=== PATIENT | female | born 1970 | race Caucasian/White ===

== ENCOUNTER 2017-07-11 09:43 | Emergency (ER) | payer BC, OTHER ==
[2017-07-11 09:59] VITALS: BP 110/70; BMI 39.8
--- NOTE | 2017-07-11 10:37 | DR.EXTPAIN ---
HPI - Time seen Time seen: 10:30 - PCP Primary Care Physician: JADA - HPI Comment HPI Comment: PATIENT SAID HER SHOULDER HAVE HURT FOR 8 DAYS. HER CHEST AND UPPER ABDOMINAL PAIN FOR FEW DAYS. HER CONDITION IS WORSE TODAY. THE RIGHT UPPER ABDOMEN PAIN IS FELT TO BE HER GB PENDING TESTING. NO DIARRHEA. - Complaint/Symptoms Chief Complaint Doctor Comments: CHEST PAIN, UPPER ABDOMEN PAIN AND RIGHT SHOULDER PAIN. Chief Complaint:: PAIN TO RIGHT SHOULDER AND DOWN ARM. THINKS IT IS HER GALLBLADDER HAS HAD INCREASED UPPER ABD PAIN. 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 negative: Chills, Fever Eyes: No Symptoms Reported. negative: Eye Pain, Discharge ENTM: No Symptoms Reported. negative: Ear Pain, Nose Discharge, Nose Congestion , Throat Pain Respiratoy: Short of Breath. negative: Productive Cough, Non-Productive Cough, Wheezing, Hemoptysis Cardiovascular: Chest Pain Gastrointestinal/Abdominal: Abdominal Pain, Nausea Genitourinary: No Symptoms Reported. negative: Dysuria, Frequency, Hematuria Neurological: No Symptoms Reported, Weakness. negative: Headache, Dizziness Musculoskeletal: Muscle Pain Integumentary: No Symptoms Reported Hematologic/Lymphatic: No Symptoms Reported Endocrine: No Symptoms Reported All Other Systems: Reviewed and Negative PE - Vital Signs Vitals: Temperature 97.9 F Pulse Rate 93 Respiratory Rate 16 Blood Pressure 110/70 O2 Sat by Pulse Oximetry 99 - General Limitations: No Limitations General Appearance: Alert - Head Head Exam: Normal Inspection - Eyes Eye exam: Normal Appearance - ENT ENT Exam: Normal External Ear Exam - Neck Neck Exam: Normal Inspection - Chest Chest Inspection: Symmetric Chest Wall Rise - Respiratory Respiratory Exam: Normal Lung Sounds Bilat Respiratory Exam: Bilateral Rhonchi, Lower Rhonchi - Cardiovascular Cardiovascular Exam: Regular Rate, Normal Rhythm - Abdominal Exam Abdominal Exam: Normal Bowel Sounds, Soft, Tenderness Abdominal Tenderness: RUQ, LUQ, Epigastrium - Extremities Extremities Exam: Tenderness (TENDER RT SHOULDER. ROMDECREASE.) - Lower Extremities Neurovascular/Tendon Exam: Normal Capillary Refill Gait Exam: Observed and Normal - Back Back Exam: Normal Inspection - Neurological Neurological Exam: Alert, Oriented X3 - Psychiatric Psychiatric Exam: Anxious - Skin Skin Exam: Normal Color MDM - Differential Diagnosis Differential Diagnosis: Other (CHEST PAIN, ABDOMINAL PAIN, CHOLECYSTITIS, RIGHT SHOULDER PAIN) Course - Treatment Treatment: SEE ORDERS. - Education/Counseling Education/Counseling: Patient, Education Educated On: Diagnosis, Needs for Follow Up ROR - Labs Reviewed Laboratory Results Reviewed?: Yes Result Diagrams: 07/11/17 11:10 07/11/17 11:10 Laboratory: WBC 12.2 X10^3/uL (3.6-10.0) H 07/11/17 11:10 RBC 4.54 X10^6/uL (3.5-5.4) 07/11/17 11:10 Hgb 13.7 g/dL (12.0-16.0) 07/11/17 11:10 Hct 40.2 % (36.0-47.0) 07/11/17 11:10 MCV 88.4 fL (80.0-100.0) 07/11/17 11:10 MCH 30.2 pg (27.0-34.0) 07/11/17 11:10 MCHC 34.1 g/dL (33.0-35.0) 07/11/17 11:10 RDW 12.8 % (11.6-16.5) 07/11/17 11:10 Plt Count 336 X10^3/uL (150.0-450.0) 07/11/17 11:10 MPV 8.4 fL (7.4-11.0) 07/11/17 11:10 Neut % 76.6 % (42.0-75.0) H 07/11/17 11:10 Lymph % 15.5 % (21.0-51.0) L 07/11/17 11:10 Schley % 6.2 % (0.0-13.0) 07/11/17 11:10 Eos % 1.0 % (0.9-2.9) 07/11/17 11:10 Baso % 0.7 % (0.2-1.0) 07/11/17 11:10 Neut # 9.4 x10^3/uL (2.2-4.8) H 07/11/17 11:10 Lymph # 1.9 X10^3/uL (1.3-2.9) 07/11/17 11:10 Schley # 0.8 x10^3/uL (0.3-0.8) 07/11/17 11:10 Eos # 0.1 x10^3/uL (0.0-0.2) 07/11/17 11:10 Baso # 0.1 X10^3/uL (0.0-0.1) 07/11/17 11:10 Absolute Nucleated RBC 0.0 /100WBC 07/11/17 11:10 D-Dimer 419 ng/mL (0-400) H* 07/11/17 11:10 Sodium 136 mmol/L (136-145) 07/11/17 11:10 Corrected Sodium 137 mmol/L (136-145) 07/11/17 11:10 Potassium 4.1 mmol/L (3.5-5.1) 07/11/17 11:10 Chloride 100 mmol/L (98-107) 07/11/17 11:10 Carbon Dioxide 25.2 mmol/L (21-32) 07/11/17 11:10 BUN 21 mg/dL (7-18) H 07/11/17 11:10 Creatinine 1.30 mg/dL (0.55-1.02) H 07/11/17 11:10 Est GFR (MDRD) Af Amer 57 (>60) L 07/11/17 11:10 Est GFR (MDRD) Non-Af 47 (>60) L 07/11/17 11:10 Glucose 122 mg/dL (65-99) H 07/11/17 11:10 Calcium 9.5 mg/dL (8.5-10.1) 07/11/17 11:10 Corrected Calcium TNP 07/11/17 11:10 Total Bilirubin 0.30 mg/dL (0.2-1.0) 07/11/17 11:10 AST 22 Units/L (15-37) 07/11/17 11:10 ALT 23 Units/L (12-78) 07/11/17 11:10 Alkaline Phosphatase 113 Units/L (46-116) 07/11/17 11:10 Creatine Kinase 178 Units/L (26-192) 07/11/17 11:10 CK-MB (CK-2) < 1.0 ng/mL (0-4.0) 07/11/17 11:10 CK/CKMB % Calc 0.6 % (<4) 07/11/17 11:10 Troponin I < 0.02 ng/mL (0-1.5) 07/11/17 11:10 Total Protein 8.0 g/dL (6.4-8.2) 07/11/17 11:10 Albumin 3.7 g/dL (3.4-5.0) 07/11/17 11:10 Globulin 4.3 g/dL (2.5-4.5) 07/11/17 11:10 Albumin/Globulin Ratio 0.9 Ratio (1.1-2.1) L 07/11/17 11:10 Amylase 39 Units/L (25-115) 07/11/17 11:10 Lipase 224 Units/L (73-393) 07/11/17 11:10 H. pylori IgG Antibody Negative (NEGATIVE) 07/11/17 11:10 - XRAY XRAY Interpreted by: Radiologist XRAY Findings: REPORTS DISCUSS WITH PATIENT. - EKG Rhythm: NSR (EKG NOTED.) - Diagnosis Discharge Problem: Abdominal pain Qualifiers: Abdominal location: upper abdomen, unspecified Qualified Code(s): R10.10 - Upper abdominal pain, unspecified Chest pain Qualifiers: Chest pain type: unspecified Qualified Code(s): R07.9 - Chest pain, unspecified Right shoulder pain Qualifiers: Chronicity: acute Qualified Code(s): M25.511 - Pain in right shoulder - Discharge Plan Disposition: HOME, SELF-CARE Condition: Stable Prescriptions: Ketorolac Tromethamine [Toradol Tab] 10 mg PO Q8H PRN #15 tab PRN Reason: Pain - Follow ups/Referrals Follow ups/Referrals: JIHAN GARAY [Primary Care Provider] - 1 day - Instructions Instructions: Abdominal Pain, Adult, [id number], Musculoskeletal Pain, Chest Pain Observation Additional Instructions: RETURN TO ED IF WORSE. THE MUSCULOSKELETAL PAIN IS FELT TO BE IN RIGHT SHOULDER.
[2017-07-11 11:18] LABS: BASOPHILS # (AUTO) 0.1 X10^3/uL (0.0-0.1); BASOPHILS % (AUTO) 0.7 % (0.2-1.0); EOSINOPHILS # (AUTO) 0.1 x10^3/uL (0.0-0.2); HEMATOCRIT 40.2 % (36.0-47.0); HEMOGLOBIN 13.7 g/dL (12.0-16.0); LYMPHOCYTES # (AUTO) 1.9 X10^3/uL (1.3-2.9); LYMPHOCYTES % (AUTO) 15.5 % (21.0-51.0); MEAN CORPUSCULAR HEMOGLOBIN 30.2 pg (27.0-34.0); MEAN CORPUSCULAR HGB CONC 34.1 g/dL (33.0-35.0); MEAN CORPUSCULAR VOLUME 88.4 fL (80.0-100.0); MEAN PLATELET VOLUME 8.4 fL (7.4-11.0); MONOCYTES # (AUTO) 0.8 x10^3/uL (0.3-0.8); MONOCYTES % (AUTO) 6.2 % (0.0-13.0); NEUTROPHILS # (AUTO) 9.4 x10^3/uL (2.2-4.8); NEUTROPHILS % (AUTO) 76.6 % (42.0-75.0); PLATELET COUNT 336 X10^3/uL (150.0-450.0); RED BLOOD COUNT 4.54 X10^6/uL (3.5-5.4); RED CELL DISTRIBUTION WIDTH 12.8 % (11.6-16.5); WHITE BLOOD COUNT 12.2 X10^3/uL (3.6-10.0)
[2017-07-11 11:35] LABS: BLOOD UREA NITROGEN 21 mg/dL (7-18); CALCIUM 9.5 mg/dL (8.5-10.1); CARBON DIOXIDE 25.2 mmol/L (21-32); CHLORIDE 100 mmol/L (98-107); COR NA(FOR HYPERGLY) 137 mmol/L (136-145); SODIUM 136 mmol/L (136-145); TROPONIN I < 0.02 ng/mL (0-1.5); eGFR BLACK RACES 57 (>60); eGFR NON BLACK RACES 47 (>60)
[2017-07-11 11:39] LABS: ALANINE AMINOTRANSFERASE 23 Units/L (12-78); ALBUMIN 3.7 g/dL (3.4-5.0); ALKALINE PHOSPHATASE 113 Units/L (46-116); AMYLASE 39 Units/L (25-115); ASPARTATE AMINO TRANSFERASE 22 Units/L (15-37); CKMB % 0.6 % (<4); CREATINE KINASE 178 Units/L (26-192); CREATINE KINASE MB < 1.0 ng/mL (0-4.0); LIPASE 224 Units/L (73-393)
--- NOTE | 2017-07-11 11:45 | RAD ---
HISTORY: Chest pain and a right-sided shoulder pain. Study: Portable chest. Comparison: Chest x-ray dated December 05, 2012. Findings: The trachea is midline. The cardiac silhouette is unremarkable. No obvious focal consolidation, ple ural effusion, or pneumothorax. The bony thorax is unremarkable. IMPRESSION: No acute cardiopulmonary disease. Reported By:
[2017-07-11] MEDS ORDERED: ZOFRAN INJ 4 MG VIAL IVP ONE (12:24)
[2017-07-11] MEDS ORDERED: DEMEROL INJ IVP ONE (12:24)
--- NOTE | 2017-07-11 12:41 | US ---
HISTORY: Abdominal pain Study: Right upper quadrant abdominal ultrasound Comparison: None Technique: Multiple images of the right upper quadrant were obtained. Findings: The liver measures 16.1 cm but is incompletely visualized. No sonographic evidence of focal discrete hepatic mass is appreciated. The right kidney measures 9.9 x 6.4 x 5.6. No sonographic evidence of hy dronephrosis is identified. No shadowing echogenic stones are noted within the gallbladder. Gallbladd er wall thickness is within normal limits measuring 2.6 mm. The common bile duct is within normal hawley its in caliber measuring 3.3 mm. The pancreas was incompletely visualized. IMPRESSION: 1. Unremarkable examination of the right upper quadrant. Reported By:
[2017-07-11] MEDS ORDERED: ZOFRAN INJ 4 MG VIAL ONE (12:42)
[2017-07-11] MEDS ORDERED: DEMEROL INJ ONE (12:43)
[2017-07-11] MEDS ORDERED: NS 100 ML IV 100 ML IV ONE (13:13)
--- NOTE | 2017-07-11 13:51 | CT ---
CTA chest Indication: Chest pain, elevated D-dimer Technique: Helical CT images of the chest were obtained with IV contrast. Reformatted images in the c oronal and sagittal planes and 3D MIP images were also generated for review. Comparison: None Findings: Opacification of the pulmonary arteries is adequate for detection of PTE. No pulmonary thro mboembolus is identified. There is no pulmonary arterial dilatation or evidence of right heart strain . The heart size is normal without pericardial effusion. The aorta and great vessels are normal in co ntour and caliber. There is heterogeneous opacification of the left brachiocephalic vein and SVC, lik mamta related to contrast admixing. The central airways are patent. There is no lymphadenopathy. The iveth ngs are clear without focal consolidation or incidental nodule/mass. No pleural effusion or pneumotho rax is identified. Limited arterial phase images of the upper abdomen are unremarkable. There is a chronic appearing ant erior compression fracture of the L1 vertebral body. No acute or aggressive osseous abnormality is id entified. Impression: No PTE or acute chest process. Incidental findings, as above. Reported By:
== END 2017-07-11 14:30 | disposition home or self-care (01) ==
LOC: ER 10:17
DX: R07.89 Other chest pain (principal); R10.11 Right upper quadrant pain; M25.511 Pain in right shoulder
CPT/HCPCS: 36415; 71010; 71275; 76705; 80053; 82150; 82550; 82553; 83690; 84484; 85025; 85378; 86677; 93005; 93010; 96365; 96374; 96375; 99283; A4222; J2175; J2405

== ENCOUNTER → 2017-07-25 | Outpatient (CLI) | payer BC ==
[2017-07-11 09:59] VITALS: BP 110/70
[2017-07-25 10:28] LABS: ALANINE AMINOTRANSFERASE 21 Units/L (12-78); ALBUMIN 3.5 g/dL (3.4-5.0); ALKALINE PHOSPHATASE 101 Units/L (46-116); AMYLASE 41 Units/L (25-115); ASPARTATE AMINO TRANSFERASE 19 Units/L (15-37); BLOOD UREA NITROGEN 19 mg/dL (7-18); CALCIUM 9.3 mg/dL (8.5-10.1); CHLORIDE 103 mmol/L (98-107); LIPASE 142 Units/L (73-393); SODIUM 139 mmol/L (136-145); TOTAL PROTEIN 7.6 g/dL (6.4-8.2); eGFR BLACK RACES > 60 (>60); eGFR NON BLACK RACES > 60 (>60)
[2017-07-25 10:50] LABS: BASOPHILS # (AUTO) 0.1 X10^3/uL (0.0-0.1); BASOPHILS % (AUTO) 0.6 % (0.2-1.0); EOSINOPHILS # (AUTO) 0.2 x10^3/uL (0.0-0.2); EOSINOPHILS % (AUTO) 1.8 % (0.9-2.9); HEMATOCRIT 38.2 % (36.0-47.0); LYMPHOCYTES # (AUTO) 1.5 X10^3/uL (1.3-2.9); LYMPHOCYTES % (AUTO) 17.4 % (21.0-51.0); MEAN CORPUSCULAR HEMOGLOBIN 30.3 pg (27.0-34.0); MEAN CORPUSCULAR HGB CONC 33.9 g/dL (33.0-35.0); MEAN CORPUSCULAR VOLUME 89.4 fL (80.0-100.0); MEAN PLATELET VOLUME 8.4 fL (7.4-11.0); MONOCYTES # (AUTO) 0.6 x10^3/uL (0.3-0.8); MONOCYTES % (AUTO) 6.7 % (0.0-13.0); NEUTROPHILS # (AUTO) 6.5 x10^3/uL (2.2-4.8); NEUTROPHILS % (AUTO) 73.5 % (42.0-75.0); PLATELET COUNT 280 X10^3/uL (150.0-450.0); RED BLOOD COUNT 4.28 X10^6/uL (3.5-5.4); RED CELL DISTRIBUTION WIDTH 13.3 % (11.6-16.5); WHITE BLOOD COUNT 8.9 X10^3/uL (3.6-10.0)
== END ==
LOC: LAB 09:43
PROVIDERS: ATTEND Psychiatry & Neurology Neurology
DX: K81.0 Acute cholecystitis (principal)
CPT/HCPCS: 36415; 80053; 82150; 83690; 85025

== ENCOUNTER → 2017-08-04 | Outpatient (CLI) | payer BC ==
[2017-07-11 09:59] VITALS: BP 110/70
--- NOTE | 2017-08-04 13:38 | NM ---
HISTORY: Lower abdominal pain, nausea Study: Nuclear medicine HIDA scan with ejection fraction Comparison: Gallbladder ultrasound 07/11/2017 Technique: Multiple scintigraphic images of the abdomen were obtained the intravenous administration of 5.5 mCi of technetium labeled Choletec. Following distention of the gallbladder with radiotracer, the patient drank 8 oz of Ensure Plus. An estimated gallbladder ejection fraction was calculated based on the physiologic response of this matthew stion. Findings: Homogeneous uptake of radiotracer is seen throughout the liver. This intrabiliary ductal system is o bserved normally. The common hepatic and common bile duct grossly appear unremarkable with normal bi liary-bowel transit. The gallbladder is observed to fill normally. After the ingestion of Ensure, a normal gallbladder ejection fraction of 69% (normal > 35%) is observ ed. IMPRESSION: 1. Normal hepatobiliary imaging scan. 2. Normal gallbladder ejection fraction. Reported By:
== END ==
LOC: RAD 09:32
PROVIDERS: ATTEND Internal Medicine Gastroenterology
DX: R10.31 Right lower quadrant pain (principal); R10.32 Left lower quadrant pain; R10.13 Epigastric pain; R11.0 Nausea
CPT/HCPCS: 78227; A9537

== ENCOUNTER → 2017-08-17 | Outpatient (CLI) | payer BC ==
--- NOTE | 2017-08-17 16:07 | MRI ---
MRI right shoulder without contrast Indication: Shoulder pain Comparison: None Technique: Multiplanar, multi sequence MR images of the right shoulder were obtained without contrast . Findings: No evidence for acute fracture or dislocation. There are mild degenerative changes of the A C joint. Type 2 acromion. No marked encroachment on the rotator cuff. There is focal linear intermedi ate signal defect along the undersurface fibers of the distal conjoined tendon (for example coronal i mages 12), without tendon retraction. The remainder of the cuff is otherwise grossly intact. The intr a-articular biceps tendon is intact. No overt labral tear. The glenohumeral articular surfaces are gr ossly maintained. No joint effusion. No significant muscle atrophy about the shoulder. Impression: Suggestion of rim rent tear of the distal conjoined tendon, of indeterminate chronicity. No evidence for large cuff tear or tendon retraction. Mild AC joint DJD. Reported By:
--- NOTE | 2017-08-18 11:26 | MRI ---
MRI SPINE THORACIC WITHOUT CONTRAST CLINICAL HISTORY: 47-year-old female with back and right shoulder pain. COMPARISON: None. TECHNIQUE: Multiplanar, multisequence MRI images of the thoracic spine were obtained prior to and fo llowing the uneventful intravenous administration of contrast. FINDINGS: Straightening of the thoracic kyphosis as imaged. Alignment is maintained. Vertebral body and interve rtebral disc space height are normal. Vertebral marrow and intervertebral disc signal are normal. C6-C7: Broad-based disc osteophyte nearly completely effaces the ventral subarachnoid spaces with fla ttening of the ventral cord without signal change. Central canal is narrowed to 8 mm. Large Schmorl's node superior endplate L1. 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 Cord signal is otherwise unremarkable. There is no evidence of significant neural foraminal stenosis or canal compromise. IMPRESSION: 1. 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 Recommend MR brain and cervical spine with contrast, as well as MR thoracic and lumbar spine with contrast for complete evaluation and exclusion of neoplastic process. 2. Degenerative changes of the lower cervical spine as described above. This may be a source of syrin gohydromyelia. Reported By:
--- NOTE | 2017-08-18 11:33 | MRI ---
MRI SPINE LUMBAR WITHOUT CONTRAST CLINICAL HISTORY: 47-year-old female with back pain. COMPARISON: None. Technique: Multiplanar, multisequence MRI images of the lumbar spine were obtained without the admin istration of contrast. FINDINGS: The most caudad, fully-formed intervertebral disc will be labeled L5-S1 for the purpose of this dictation. There is normal lumbar lordosis. Alignment is maintained. Large Schmorl's node superi or endplate L1 with remaining vertebral body heights preserved disc heights are preserved. Marrow sig nal is preserved with mild loss of disc signal L3-L5. Cord signal is normal. The conus medullaris is normal in signal characteristics and morphology and terminates at the L1-2 level. T11-T12: Mild symmetric disc bulge and facet hypertrophy with thickening of the ligamentum flavum wit hout central canal or neural foraminal stenosis. T12-L1: Small symmetric disc bulge with mild thickening of the ligamentum flavum and facet hypertroph y without central canal or neural foraminal stenosis. L1-L2: Small symmetric disc bulge with moderate facet hypertrophy and thickening of ligamentum flavum . No central canal or neural foraminal stenosis. L2-L3: Moderate symmetric disc bulge and facet hypertrophy with thickened flavum. No central canal or neural foraminal stenosis. L3-L4: Large symmetric disc bulge with severe facet hypertrophy and thickened flavum. Trace fluid in the facet joints. No central canal or neural foraminal stenosis. L4-L5: Large asymmetric disc bulge with a right foraminal component with severe facet hypertrophy and thickened ligamentum flavum. No significant central canal or neural foraminal stenosis. L5-S1: Symmetric disc bulge with severe facet hypertrophy and thickened flavum without central canal or neural foraminal stenosis. Paraspinous soft tissues are unremarkable. IMPRESSION: 1. Mild multilevel disc degeneration and spondyloarthropathy without significant central canal or jamilah ral foraminal stenosis. 2. See level by level descriptions above. Reported By:
== END ==
LOC: RAD 08:37
PROVIDERS: ATTEND Psychiatry & Neurology Neurology
DX: M51.24 Other intervertebral disc displacement, thoracic region (principal); M54.2 Cervicalgia; M25.511 Pain in right shoulder; M19.011 Primary osteoarthritis, right shoulder; M51.36 Other intervertebral disc degeneration, lumbar region
CPT/HCPCS: 72146; 72148; 73221

== ENCOUNTER 2017-09-11 17:28 | Inpatient (IN) | payer BC ==
--- NOTE | 2017-09-11 18:00 | DR.GENAD ---
HPI - Complaint/Symptoms Chief Complaint Doctors Comments: AMS, POSSIBLE DRUG OVER DOSE. 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 - Family History Family Medical History: Diabetes Mellitus, [place], Coronary Artery Disease, Heart Failure, Hypertension - Social History Do you use any recreational Drugs:: No PE - Vital Signs Vitals: Temperature 97.0 F Pulse Rate [Right Brachial] 92 Pulse Rate 95 Respiratory Rate 17 Blood Pressure [Left Arm] 118/60 Blood Pressure 120/59 O2 Sat by Pulse Oximetry 98 - General Limitations: Altered Mental Status General Appearance: Obtunded - Head Head Exam: Normal Inspection - Eyes Eye exam: Normal Appearance - ENT ENT Exam: Normal External Ear Exam External Ear Exam: Normal External Inspection TM/Canal Exam: Bilateral Normal Nose Exam: Normal Nose Exam Mouth Exam: Normal Inspection Throat Exam: Normal Inspection - Neck Neck Exam: Trachea Midline - Chest Chest Inspection: Symmetric Chest Wall Rise - Respiratory Respiratory Exam: Respiratory Distress Respiratory Exam: Bilateral Wheezing, Bilateral Rhonchi, Upper Rhonchi, Lower Wheezing, Lower Rhonchi - Cardiovascular Cardiovascular Exam: Regular Rate, Normal Rhythm, Normal Heart Sounds - Abdominal Exam Abdominal Exam: Normal Bowel Sounds, Soft. negative: Tenderness - Extremities Extremities Exam: Normal Inspection - Back Back Exam: Normal Inspection MDM - Additional Information Additional Information Obtained From: Old Records (DRUG OVERDOSE, ASPIRATION, AMS) Course - Treatment Treatment: SEE ORDERS. - Education/Counseling Educated On: Diagnosis - Discharge Plan Condition: Stable - Follow ups/Referrals Follow ups/Referrals: MAYE RAMIREZ [Primary Care Provider] - 3 days - Instructions
[2017-09-11] MEDS ORDERED: NS 1000 ML 1,000 ML IV ONE ×3 (18:16→22:24)
--- NOTE | 2017-09-11 19:01 | RAD ---
Examination: Portable AP chest History: Possible overdose, question ish aspiration Comparison reference 07/11/2017 Findings: Continued normal heart size with clear lungs and pleural spaces. No definite pneumonia, ate lectasis or pleural abnormality. Impression: No change; no acute disease. Reported By:
--- NOTE | 2017-09-11 19:03 | CT ---
STUDY: CT HEAD WITHOUT CONTRAST HISTORY: Possible medication overdose. TECHNIQUE: Multiple axial images of the head were obtained from the skull base to the vertex without administration of IV contrast. Automated exposure control (AEC) was utilized to adjust the MA and/o r kV. COMPARISON: None. FINDINGS: The sulci, cisterns and ventricles are age appropriate. There is no evidence of acute terr itorial infarction, hemorrhage, mass, mass effect, or midline shift. There are no abnormal intra-axia l or extra-axial fluid collections. There is no evidence of acute osseous abnormality or significant soft tissue swelling. Visualized par anasal sinuses and mastoid air cells are predominately clear. IMPRESSION: 1. No evidence of acute intracranial abnormality. Reported By:
[2017-09-11 19:09] LABS: BASOPHILS % (AUTO) 0.2 % (0.2-1.0); EOSINOPHILS % (AUTO) 0.1 % (0.9-2.9); HEMATOCRIT 37.5 % (36.0-47.0); HEMOGLOBIN 12.4 g/dL (12.0-16.0); LYMPHOCYTES # (AUTO) 0.4 X10^3/uL (1.3-2.9); LYMPHOCYTES % (AUTO) 2.3 % (21.0-51.0); MEAN CORPUSCULAR HEMOGLOBIN 30.2 pg (27.0-34.0); MEAN CORPUSCULAR VOLUME 91.5 fL (80.0-100.0); MEAN PLATELET VOLUME 8.4 fL (7.4-11.0); MONOCYTES # (AUTO) 0.9 x10^3/uL (0.3-0.8); MONOCYTES % (AUTO) 5.8 % (0.0-13.0); NEUTROPHILS # (AUTO) 14.5 x10^3/uL (2.2-4.8); NEUTROPHILS % (AUTO) 91.6 % (42.0-75.0); PLATELET COUNT 266 X10^3/uL (150.0-450.0); RED CELL DISTRIBUTION WIDTH 13.3 % (11.6-16.5); WHITE BLOOD COUNT 15.8 X10^3/uL (3.6-10.0)
[2017-09-11 19:22] LABS: PLATELET MORPHOLOGY COMMENT NORMAL (NORMAL)
[2017-09-11 19:23] LABS: LACTIC ACID 0.8 mmol/L (0.4-2.0)
[2017-09-11 19:46] LABS: ALANINE AMINOTRANSFERASE 82 Units/L (12-78); ALBUMIN 3.1 g/dL (3.4-5.0); ALKALINE PHOSPHATASE 120 Units/L (46-116); ASPARTATE AMINO TRANSFERASE 198 Units/L (15-37); BLOOD UREA NITROGEN 63 mg/dL (7-18); CALCIUM 8.1 mg/dL (8.5-10.1); CARBON DIOXIDE 20.6 mmol/L (21-32); CHLORIDE 94 mmol/L (98-107); COR CA(FOR HYPOALB) 8.8 mg/dL (8.5-10.1); CREATININE 5.95 mg/dL (0.55-1.02); SODIUM 129 mmol/L (136-145); TOTAL PROTEIN 7.4 g/dL (6.4-8.2); TROPONIN I < 0.02 ng/mL (0-1.5); eGFR BLACK RACES 10 (>60); eGFR NON BLACK RACES 8 (>60)
[2017-09-11 19:47] LABS: CREATINE KINASE MB 215.6 ng/mL (0-4.0)
[2017-09-11 19:50] LABS: CKMB % 3.6 % (<4); CREATINE KINASE 6070 Units/L (26-192)
[2017-09-11 19:58] LABS: BILIRUBIN,URINE NEGATIVE (NEGATIVE); BLOOD/HEMOGLOBIN,URINE 5+ (NEGATIVE); GLUCOSE, URINE NEGATIVE (NEGATIVE); KETONES,URINE NEGATIVE (NEGATIVE); LEUKOCYTE ESTERASE ,URINE 3+ (NEGATIVE); NITRITES,URINE POSITIVE (NEGATIVE); PROTEIN,URINE 3+ (NEGATIVE); UROBILINOGEN,URINE NORMAL (NORMAL)
[2017-09-11 20:04] LABS: APPEARANCE,URINE HAZY (CLEAR); BACTERIA,URINE 3+ /HPF (NEGATIVE); COLOR,URINE DARK YELLOW (YELLOW); SQUAMOUS EPITHELIAL CELL,UR RARE /HPF (NEGATIVE)
[2017-09-11] MEDS ORDERED: D50W ABBOJECT SYR ONE (20:25)
[2017-09-11] MEDS ORDERED: HumuLIN R ONE (20:26)
[2017-09-11] MEDS ORDERED: D50W ABBOJECT SYR IV ONE (20:34)
[2017-09-11] MEDS ORDERED: HumuLIN R IV ONE (20:35)
[2017-09-11] MEDS ORDERED: NS 1000 ML 1,000 ML ONE ×2 (21:21→22:15)
[2017-09-11 21:30] LABS: BILIRUBIN,URINE 1+ (NEGATIVE); BLOOD/HEMOGLOBIN,URINE 5+ (NEGATIVE); GLUCOSE, URINE NEGATIVE (NEGATIVE); KETONES,URINE NEGATIVE (NEGATIVE); LEUKOCYTE ESTERASE ,URINE 3+ (NEGATIVE); NITRITES,URINE POSITIVE (NEGATIVE); PROTEIN,URINE 3+ (NEGATIVE); UROBILINOGEN,URINE NORMAL (NORMAL)
[2017-09-11 21:36] LABS: APPEARANCE,URINE CLOUDY (CLEAR); BACTERIA,URINE 3+ /HPF (NEGATIVE); COLOR,URINE YELLOW (YELLOW); RBC,URINE 0-5 /HPF (NEGATIVE); SQUAMOUS EPITHELIAL CELL,UR RARE /HPF (NEGATIVE)
[2017-09-11] MEDS ORDERED: DOPAMINE IV PREMIX 400 MG/250 ML 400 MG/250 ML BAG IV PRN (21:50)
[2017-09-11] MEDS ORDERED: LEVOPHED INJ ONE (21:57)
[2017-09-11] MEDS ORDERED: D5W 250 ML IV 250 ML IV ONE (21:58)
[2017-09-11] MEDS ORDERED: LEVOPHED INJ 8 MG in D5W 250 ML IV 242 ML IV PRN (21:58)
[2017-09-11] MEDS: LEVOPHED INJ 8 MG in D5W 250 ML IV 242 ML IV PRN (22:22)
[2017-09-11] MEDS ORDERED: ROCEPHIN 1 GM IV PREMIX 1 GM/50 ML IV.SOLN. IV ONE ×2 (22:27→22:36)
[2017-09-11] MEDS ORDERED: NS 1000 ML 1,000 ML IV SCH (23:45)
[2017-09-12] MEDS ORDERED: NS 1000 ML 1,000 ML IV ONE (00:20)
[2017-09-12 03:10] LABS: TROPONIN I < 0.02 ng/mL (0-1.5)
[2017-09-12 03:12] LABS: CKMB % 3.2 % (<4); CREATINE KINASE 5212 Units/L (26-192); CREATINE KINASE MB 165.3 ng/mL (0-4.0)
[2017-09-12 03:24] LABS: ABG BASE EXCESS -13.3 mmol/L (-2.0-2.0); ABG HCO3 19.6 mmol/L (22-26)
[2017-09-12] MEDS ORDERED: NARCAN INJ IVP ONE (03:58)
[2017-09-12] MEDS: NS 1000 ML 1,000 ML IV SCH ×4 (04:26→20:54)
[2017-09-12 04:42] LABS: ABG BASE EXCESS -13.2 mmol/L (-2.0-2.0)
[2017-09-12 04:44] LABS: ABG HCO3 16.2 mmol/L (22-26)
[2017-09-12 05:38] LABS: ABG BASE EXCESS -12.7 mmol/L (-2.0-2.0)
[2017-09-12 05:40] LABS: ABG HCO3 16.8 mmol/L (22-26)
[2017-09-12 07:46] LABS: BASOPHILS # (AUTO) 0.1 X10^3/uL (0.0-0.1); BASOPHILS % (AUTO) 0.3 % (0.2-1.0); EOSINOPHILS % (AUTO) 0.1 % (0.9-2.9); HEMATOCRIT 36.7 % (36.0-47.0); HEMOGLOBIN 12.1 g/dL (12.0-16.0); LYMPHOCYTES # (AUTO) 0.4 X10^3/uL (1.3-2.9); LYMPHOCYTES % (AUTO) 2.3 % (21.0-51.0); MEAN CORPUSCULAR HEMOGLOBIN 30.6 pg (27.0-34.0); MEAN CORPUSCULAR HGB CONC 32.9 g/dL (33.0-35.0); MEAN CORPUSCULAR VOLUME 93.2 fL (80.0-100.0); MEAN PLATELET VOLUME 8.7 fL (7.4-11.0); MONOCYTES # (AUTO) 1.2 x10^3/uL (0.3-0.8); MONOCYTES % (AUTO) 6.4 % (0.0-13.0); NEUTROPHILS # (AUTO) 17.5 x10^3/uL (2.2-4.8); NEUTROPHILS % (AUTO) 90.9 % (42.0-75.0); PLATELET COUNT 264 X10^3/uL (150.0-450.0); RED BLOOD COUNT 3.94 X10^6/uL (3.5-5.4); RED CELL DISTRIBUTION WIDTH 13.4 % (11.6-16.5); WHITE BLOOD COUNT 19.2 X10^3/uL (3.6-10.0)
[2017-09-12 08:02] LABS: ALANINE AMINOTRANSFERASE 172 Units/L (12-78); ALBUMIN 2.8 g/dL (3.4-5.0); ALKALINE PHOSPHATASE 143 Units/L (46-116); ASPARTATE AMINO TRANSFERASE 282 Units/L (15-37); BAND NEUTROPHILS % 5 % (0-10); BLOOD UREA NITROGEN 66 mg/dL (7-18); CALCIUM 7.5 mg/dL (8.5-10.1); CARBON DIOXIDE 16.8 mmol/L (21-32); CHLORIDE 98 mmol/L (98-107); COR CA(FOR HYPOALB) 8.5 mg/dL (8.5-10.1); CREATININE 5.82 mg/dL (0.55-1.02); MAGNESIUM 2.3 mg/dL (1.7-2.9); PLATELET MORPHOLOGY COMMENT NORMAL (NORMAL); SODIUM 133 mmol/L (136-145); TOTAL PROTEIN 6.9 g/dL (6.4-8.2); eGFR BLACK RACES 10 (>60); eGFR NON BLACK RACES 8 (>60)
[2017-09-12 08:11] LABS: TROPONIN I 0.07 ng/mL (0-1.5)
[2017-09-12 08:16] LABS: ABG HCO3 18.3 mmol/L (22-26)
[2017-09-12 08:19] LABS: ABG ALLEN TEST POS
[2017-09-12] MEDS ORDERED: ROCEPHIN 1 GM IV PREMIX 1 GM/50 ML IV.SOLN. IV SCH (09:00)
[2017-09-12 09:42] LABS: CKMB % 2.7 % (<4); CREATINE KINASE MB 134.3 ng/mL (0-4.0)
[2017-09-12] MEDS ORDERED: NARCAN INJ ONE (09:46)
[2017-09-12] MEDS ORDERED: ROMAZICON INJ 0.5 MG ONE (09:46)
[2017-09-12] MEDS ORDERED: NARCAN INJ IVP PRN (09:48)
[2017-09-12] MEDS ORDERED: KAYEXALATE PO ONE ×2 (09:49→09:58)
[2017-09-12] MEDS ORDERED: NARCAN INJ 2 MG in NS 500 ML IV 500 ML IV ONE (10:00)
[2017-09-12] MEDS ORDERED: D50W ABBOJECT SYR IV ONE (10:05)
[2017-09-12] MEDS ORDERED: HumuLIN R SUBCUT ONE (10:07)
[2017-09-12] MEDS ORDERED: HumuLIN R ONE (10:09)
[2017-09-12] MEDS ORDERED: HumuLIN R IV ONE (10:12)
[2017-09-12] MEDS ORDERED: TOBRAMYCIN SULFATE 80 MG in NS 100 ML IV 100 ML IV ONE (10:15)
[2017-09-12] MEDS ORDERED: NS 100 ML IV 100 ML IV ONE (10:26)
[2017-09-12] MEDS ORDERED: TOBRAMYCIN SULFATE ONE (10:26)
--- NOTE | 2017-09-12 10:52 | RAD ---
Examination: Portable AP chest History: NG tube placement Findings: A NG tube passes below the diaphragm into the stomach. There is marked gaseous dilatation o f the stomach. The tip of the NG tube is not identified on the image. Impression: NG tube position as noted, the tip not identified on this examination. There is marked ga seous distention of the stomach. Reported By:
[2017-09-12] MEDS ORDERED: MAXIPIME VIAL 1 GM IV SCH (11:00)
[2017-09-12 11:06] LABS: ABG BASE EXCESS -13.7 mmol/L (-2.0-2.0)
[2017-09-12 11:09] LABS: ABG ALLEN TEST POS; ABG HCO3 16.1 mmol/L (22-26)
[2017-09-12] MEDS: LEVAQUIN PREMIX IV 250 MG 250 MG/50 ML BAG IV SCH (11:40)
[2017-09-12 12:02] LABS: CREATININE 4.76 mg/dL (0.55-1.02)
[2017-09-12] MEDS: MAXIPIME 1 GM IV PREMIX 1 GM/50 ML BAG IV SCH (12:10)
[2017-09-12] MEDS: LEVOPHED INJ 8 MG in D5W 250 ML IV 242 ML IV PRN (14:09)
[2017-09-12] MEDS ORDERED: NARCAN INJ 2 MG in NS 500 ML IV 500 ML IV PRN (15:54)
[2017-09-12 15:56] LABS: ABG BASE EXCESS -8.8 mmol/L (-2.0-2.0); ABG HCO3 20.3 mmol/L (22-26)
[2017-09-12 15:59] LABS: ABG ALLEN TEST POS
[2017-09-12 16:28] LABS: CALCIUM 7.5 mg/dL (8.5-10.1); CARBON DIOXIDE 20.2 mmol/L (21-32); CREATININE 3.57 mg/dL (0.55-1.02)
[2017-09-12 16:37] LABS: ACETAMINOPHEN 0.6 ug/mL (10-30); SALICYLATE 5.3 mg/dL (2.8-20)
[2017-09-12 16:41] LABS: BLOOD ALCOHOL < 3 mg/dL (0-19.9)
[2017-09-12] MEDS ORDERED: SNACK - Diabetic Appropriate PO SCH ×2 (20:00)
[2017-09-13 05:06] LABS: BASOPHILS % (AUTO) 0.1 % (0.2-1.0); HEMATOCRIT 31.8 % (36.0-47.0); HEMOGLOBIN 10.5 g/dL (12.0-16.0); LYMPHOCYTES # (AUTO) 0.5 X10^3/uL (1.3-2.9); LYMPHOCYTES % (AUTO) 3.6 % (21.0-51.0); MEAN CORPUSCULAR HEMOGLOBIN 30.4 pg (27.0-34.0); MEAN PLATELET VOLUME 8.6 fL (7.4-11.0); MONOCYTES # (AUTO) 1.3 x10^3/uL (0.3-0.8); MONOCYTES % (AUTO) 9.1 % (0.0-13.0); NEUTROPHILS # (AUTO) 12.6 x10^3/uL (2.2-4.8); NEUTROPHILS % (AUTO) 87.2 % (42.0-75.0); PLATELET COUNT 260 X10^3/uL (150.0-450.0); RED BLOOD COUNT 3.46 X10^6/uL (3.5-5.4); RED CELL DISTRIBUTION WIDTH 13.8 % (11.6-16.5); WHITE BLOOD COUNT 14.5 X10^3/uL (3.6-10.0)
[2017-09-13 05:14] LABS: ALANINE AMINOTRANSFERASE 131 Units/L (12-78); ALBUMIN 2.5 g/dL (3.4-5.0); ALKALINE PHOSPHATASE 166 Units/L (46-116); ASPARTATE AMINO TRANSFERASE 164 Units/L (15-37); BLOOD UREA NITROGEN 44 mg/dL (7-18); CALCIUM 8.6 mg/dL (8.5-10.1); CARBON DIOXIDE 20.2 mmol/L (21-32); CHLORIDE 110 mmol/L (98-107); COR CA(FOR HYPOALB) 9.8 mg/dL (8.5-10.1); CREATININE 1.56 mg/dL (0.55-1.02); MAGNESIUM 1.9 mg/dL (1.7-2.9); SODIUM 142 mmol/L (136-145); TOTAL PROTEIN 6.4 g/dL (6.4-8.2); eGFR BLACK RACES 46 (>60); eGFR NON BLACK RACES 38 (>60)
[2017-09-13] MEDS: NS 1000 ML 1,000 ML IV SCH ×3 (06:03→21:40)
[2017-09-13 06:15] LABS: ABG BASE EXCESS -5.1 mmol/L (-2.0-2.0); ABG HCO3 22.4 mmol/L (22-26)
[2017-09-13 08:48] LABS: TROPONIN I 0.03 ng/mL (0-1.5)
[2017-09-13 08:54] LABS: CREATINE KINASE MB 46.7 ng/mL (0-4.0)
[2017-09-13] MEDS: MAXIPIME 1 GM IV PREMIX 1 GM/50 ML BAG IV SCH (10:26)
[2017-09-13 14:49] LABS: ABG BASE EXCESS -10.6 mmol/L (-2.0-2.0); ABG HCO3 18.1 mmol/L (22-26)
[2017-09-13 14:50] LABS: ABG ALLEN TEST POS
[2017-09-13 14:51] LABS: FRACTIONATED INSPIRED OXYGEN 40
[2017-09-14 01:31] LABS: ABG BASE EXCESS -3.4 mmol/L (-2.0-2.0); ABG HCO3 21.4 mmol/L (22-26)
[2017-09-14] MEDS: NS 1000 ML 1,000 ML IV SCH (03:00)
[2017-09-14 05:33] LABS: BASOPHILS % (AUTO) 0 % (0.2-1.0); HEMATOCRIT 30.9 % (36.0-47.0); HEMOGLOBIN 10.5 g/dL (12.0-16.0); LYMPHOCYTES # (AUTO) 0.6 X10^3/uL (1.3-2.9); LYMPHOCYTES % (AUTO) 3.4 % (21.0-51.0); MEAN CORPUSCULAR HEMOGLOBIN 30.4 pg (27.0-34.0); MEAN CORPUSCULAR HGB CONC 33.8 g/dL (33.0-35.0); MEAN CORPUSCULAR VOLUME 89.9 fL (80.0-100.0); MEAN PLATELET VOLUME 8.7 fL (7.4-11.0); MONOCYTES # (AUTO) 1.7 x10^3/uL (0.3-0.8); NEUTROPHILS # (AUTO) 14.7 x10^3/uL (2.2-4.8); NEUTROPHILS % (AUTO) 86.6 % (42.0-75.0); PLATELET COUNT 307 X10^3/uL (150.0-450.0); RED BLOOD COUNT 3.44 X10^6/uL (3.5-5.4); RED CELL DISTRIBUTION WIDTH 13.8 % (11.6-16.5); WHITE BLOOD COUNT 16.9 X10^3/uL (3.6-10.0)
[2017-09-14 05:46] LABS: ALANINE AMINOTRANSFERASE 115 Units/L (12-78); ALBUMIN 2.7 g/dL (3.4-5.0); ALKALINE PHOSPHATASE 167 Units/L (46-116); ASPARTATE AMINO TRANSFERASE 115 Units/L (15-37); BLOOD UREA NITROGEN 33 mg/dL (7-18); CALCIUM 9.2 mg/dL (8.5-10.1); CARBON DIOXIDE 18.8 mmol/L (21-32); COR CA(FOR HYPOALB) 10.2 mg/dL (8.5-10.1); COR NA(FOR HYPERGLY) 151 mmol/L (136-145); MAGNESIUM 1.7 mg/dL (1.7-2.9); TOTAL PROTEIN 6.7 g/dL (6.4-8.2); eGFR BLACK RACES > 60 (>60); eGFR NON BLACK RACES > 60 (>60)
[2017-09-14 05:50] LABS: CHLORIDE 116 mmol/L (98-107); SODIUM 150 mmol/L (136-145)
[2017-09-14 07:19] VITALS: BMI 43.4
[2017-09-14] MEDS: PriLOSEC PO SCH (08:03)
--- NOTE | 2017-09-14 08:04 | RAD ---
Examination: Portable AP chest History: Overdose, SOB Comparison reference 09/12/2017. Findings: Supine examination demonstrates continued normal heart size. There is extensive vascular co ngestion with bilateral infiltrates or edema. No pneumothorax or pleural fluid. The NG tube has been removed. Impression: Interval removal enteric tube. Bilateral infiltrates or pulmonary edema; aspiration could produce similar findings. Reported By:
[2017-09-14] MEDS ORDERED: DUONEB 0.5 MG/3 MG ONE (09:13)
[2017-09-14 09:24] LABS: ABG HCO3 22.7 mmol/L (22-26)
[2017-09-14 09:25] LABS: ABG ALLEN TEST POS
[2017-09-14] MEDS ORDERED: ZOFRAN INJ 4 MG VIAL ONE (09:38)
[2017-09-14] MEDS: DUONEB 0.5 MG/3 MG NEB SCH ×4 (09:45→21:30)
[2017-09-14] MEDS: ZOFRAN INJ 4 MG VIAL IVP PRN (09:45)
[2017-09-14] MEDS ORDERED: DILAUDID INJ ONE (10:20)
[2017-09-14] MEDS ORDERED: ATIVAN INJ 2 MG VIAL ONE (10:21)
[2017-09-14] MEDS ORDERED: ATIVAN INJ 2 MG VIAL IVP ONE ×2 (10:22→12:30)
[2017-09-14] MEDS ORDERED: DILAUDID INJ IVP ONE ×2 (10:25→12:30)
[2017-09-14] MEDS ORDERED: NS 1/2 1000 ML IV 1,000 ML IV ONE (11:46)
[2017-09-14] MEDS ORDERED: LEVAQUIN PREMIX IV 250 MG 250 MG/50 ML BAG IV STA (11:48)
[2017-09-14] MEDS ORDERED: NS IV ONE (11:49)
[2017-09-14] MEDS ORDERED: MAXIPIME IV ONE (11:49)
[2017-09-14] MEDS ORDERED: HALDOL INJ IVP ONE (12:10)
[2017-09-14] MEDS ORDERED: HALDOL INJ ONE (12:10)
[2017-09-14] MEDS: LASIX IVP SCH ×2 (12:24→21:34)
[2017-09-14] MEDS: LEVAQUIN PREMIX IV 250 MG 250 MG/50 ML BAG IV SCH (12:25)
[2017-09-14] MEDS: NS 1/2 1000 ML IV 1,000 ML IV SCH ×2 (12:26→16:21)
[2017-09-14] MEDS: MAXIPIME 1 GM IV PREMIX 1 GM/50 ML BAG IV SCH (12:26)
--- NOTE | 2017-09-14 13:51 | DR.H&P ---
H&P - History & Physical for Day of: H&P Date: 09/11/17 - Chief Complaint Chief Complaint: AMS, UNRESPONSIVE, REPORTED POSSIBLE NARCOTIC DRUG OVERDOSE - Allergies Allergies/Adverse Reactions: Allergies Allergy/AdvReac Type Severity Reaction Status Date / Time No Known Drug Allergies Allergy Verified 09/11/17 17:29 - History of Present Illness History of Present Illness: patient is a 47-year-old white female who is an ER admission after presenting per EMS to the ER unresponsive. Significant other reports that patient possibly took a long acting morphine tablet. Patient has a long history of use of benzodiazepines as well as opioid pain medication. Patient was hypotensive on arrival, had a CT of her head without any acute intracranial findings. PATIENT'S CHEMISTRY REVEALED ACUTE RENAL FAILURE WITH DEHYDRATION AND RHABDOMYOLYSIS. tHE PATIENT WAS TREATED WITH nARCAN IN THE er, ADMITTED TO icu FOR FURTHER EVALUATION, CONTINUED CARDIAC MONITORING BLOOD PRESSURE CONTROL, nARCAN DRIP AND iv HYDRATION, Baugh CATHETER AND STRICT i'S AND o'S - Past Medical History Past Medical History: Anxiety, Arthritis, Dyslipidemia, GERD, Hyperthyroidism, PUD - Past Surgical History Surgical History: Hysterectomy - Family History Family Medical History: Cancer, [place], Hypertension - Social History Does patient currently use any type of tobacco product: Yes Have you used tobacco products in the last 12 months: Yes Type of Tobacco Use: Cigarettes Does any household member use tobacco: No Alcohol Use: None Drug Use: Prescription Drugs - Medications Home Medications: Esomeprazole Magnesium [Nexium] 40 mg PO DAILY 09/11/17 [History Confirmed 09/11] Simvastatin 20 mg PO HS 09/11/17 [History Confirmed 09/12/17] - Review of Systems Constitutional: Weakness, Other (ALTERED MENTAL STATUS) Eyes: No Symptoms Reported ENT: No Symptoms Reported Respiratory: Other (AUDIBLE RHONCHI) Cardiovascular: denies: Edema Gastrointestinal: No Symptoms Reported Genitourinary: No Symptoms Reported Musculoskeletal: No Symptoms Reported Skin: No Symptoms Reported Neurological: Confusion, Other (ALTERED MENTAL STATUS) - Physical Exam Vital Signs: Temperature 98.5 F Pulse Rate [Apical] 91 Pulse Rate [Right Brachial] 92 Pulse Rate 132 Respiratory Rate 26 Blood Pressure [Left Arm] 149/71 Blood Pressure 120/59 O2 Sat by Pulse Oximetry 91 Oriented: Other (ALTERED MENTAL STATUS) Ear: Normal Nose: Normal Throat: Normal Respiratory: Rhonchi Throughout, RLL Diminished, LLL Diminished Cardiovascular: Tachycardia : Normal Auscultation: Bowel Sounds: Normal Palpation: Normal Tenderness: Normal Skin: Decreased Turgur, Bruising Musculoskeletal: Normal Speech Pattern: Inappropriate, Slurred - Assessment/Plan (1) Altered mental status Status: Acute Plan: ADMIT ICU, CONTINUOUS OXYGEN SUPPLEMENTAL VIA BIPAP. SERIAL ABG'S, IV HYDRATION, BLOOD PRESSURE MONIOTORING. NARCAN DRIP, BAUGH CATH WITH STRICT I & OS. NPO, EKG'S CARDIAC ENZYMES (2) Acute renal failure Status: Acute (3) Opioid abuse with intoxication Status: Acute (4) Rhabdomyolysis Status: Acute (5) Hyperkalemia Status: Acute (6) Hypotension Status: Acute
--- NOTE | 2017-09-14 14:55 | CT ---
HISTORY: Confusion Study: CT head without contrast Comparison: 09/11/2017 Technique: Axial noncontrast images with coronal and sagittal reformats. Dose reduction procedures we re used with mA/kv adjusted for body size. Findings: The ventricles are normal in size shape and position. There are no areas of abnormal attenuation to s uggest recent or remote CVA, hemorrhage, mass lesion, or extra-axial fluid collection. Those sinuses visualized were clear. The calvarium is intact. IMPRESSION: No significant intracranial abnormality identified Reported By:
[2017-09-14] MEDS ORDERED: DILAUDID INJ IVP PRN (18:45)
[2017-09-14 19:07] LABS: ABG BASE EXCESS 4.1 mmol/L (-2.0-2.0); ABG HCO3 28.5 mmol/L (22-26)
[2017-09-14] MEDS: ATIVAN INJ 2 MG VIAL IVP PRN ×2 (19:54→23:51)
[2017-09-14] MEDS ORDERED: MAXIPIME 2 GM in NS 100 ML IV + SPIKE MINIBAG* 100 ML IV SCH (21:00)
[2017-09-15] MEDS: DUONEB 0.5 MG/3 MG NEB SCH ×6 (00:52→22:21)
[2017-09-15 05:30] LABS: ABG BASE EXCESS 8.3 mmol/L (-2.0-2.0)
[2017-09-15 05:33] LABS: ABG ALLEN TEST POS; ABG HCO3 32.8 mmol/L (22-26)
[2017-09-15] MEDS: NS 1/2 1000 ML IV 1,000 ML IV SCH ×2 (06:31→08:26)
[2017-09-15 06:32] LABS: BASOPHILS % (AUTO) 0.2 % (0.2-1.0); EOSINOPHILS % (AUTO) 0.1 % (0.9-2.9); HEMATOCRIT 30.9 % (36.0-47.0); HEMOGLOBIN 10.6 g/dL (12.0-16.0); LYMPHOCYTES # (AUTO) 1.9 X10^3/uL (1.3-2.9); LYMPHOCYTES % (AUTO) 10.8 % (21.0-51.0); MEAN CORPUSCULAR HEMOGLOBIN 30.4 pg (27.0-34.0); MEAN CORPUSCULAR HGB CONC 34.3 g/dL (33.0-35.0); MEAN CORPUSCULAR VOLUME 88.7 fL (80.0-100.0); MEAN PLATELET VOLUME 8.7 fL (7.4-11.0); MONOCYTES # (AUTO) 2.2 x10^3/uL (0.3-0.8); MONOCYTES % (AUTO) 12.5 % (0.0-13.0); NEUTROPHILS # (AUTO) 13.2 x10^3/uL (2.2-4.8); NEUTROPHILS % (AUTO) 76.4 % (42.0-75.0); PLATELET COUNT 296 X10^3/uL (150.0-450.0); RED BLOOD COUNT 3.49 X10^6/uL (3.5-5.4); RED CELL DISTRIBUTION WIDTH 13.7 % (11.6-16.5); WHITE BLOOD COUNT 17.3 X10^3/uL (3.6-10.0)
[2017-09-15 06:44] LABS: ALANINE AMINOTRANSFERASE 103 Units/L (12-78); ALBUMIN 2.5 g/dL (3.4-5.0); ALKALINE PHOSPHATASE 152 Units/L (46-116); ASPARTATE AMINO TRANSFERASE 116 Units/L (15-37); BLOOD UREA NITROGEN 28 mg/dL (7-18); CALCIUM 9.3 mg/dL (8.5-10.1); CARBON DIOXIDE 28.4 mmol/L (21-32); COR CA(FOR HYPOALB) 10.5 mg/dL (8.5-10.1); COR NA(FOR HYPERGLY) 158 mmol/L (136-145); CREATININE 0.86 mg/dL (0.55-1.02); TOTAL PROTEIN 6.6 g/dL (6.4-8.2); eGFR BLACK RACES > 60 (>60); eGFR NON BLACK RACES > 60 (>60)
[2017-09-15 06:50] LABS: PLATELET MORPHOLOGY COMMENT NORMAL (NORMAL)
[2017-09-15 06:51] LABS: SODIUM 157 mmol/L (136-145)
[2017-09-15 06:52] LABS: CHLORIDE 116 mmol/L (98-107)
--- NOTE | 2017-09-15 06:59 | RAD ---
HISTORY: Respiratory distress Study: Chest AP portable Comparison: 09/14/2017 Findings: The heart is within normal limits in size. Bilateral multiple areas of patchy alveolar filling are ag ain identified not significantly changed from the prior examination. This could represent multifocal pneumonia less likely edema. No pleural effusions are identified. The bony thorax is unremarkable. IMPRESSION: Multiple bilateral areas of patchy alveolar filling suggestive of multifocal pneumonia, unchanged Reported By:
[2017-09-15] MEDS: ATIVAN INJ 2 MG VIAL IVP PRN ×2 (07:06→10:45)
[2017-09-15] MEDS: PriLOSEC PO SCH (08:24)
[2017-09-15] MEDS ORDERED: K-RIDER 10 MEQ/NS 100 ML 10 MEQ/100 ML BAG IV PRN (08:26)
[2017-09-15] MEDS ORDERED: POTASSIUM CHL 40 MEQ/NS 0.45% 500 ML IV PRN (08:26)
[2017-09-15] MEDS ORDERED: POTASSIUM CHLORIDE LIQ 20 MEQ UDC PO PRN (08:26)
[2017-09-15] MEDS ORDERED: POTASSIUM CHL 60 MEQ/NS 0.45% 500 ML IV PRN (08:26)
[2017-09-15] MEDS: LASIX IVP SCH (08:41)
[2017-09-15] MEDS ORDERED: LEVAQUIN PREMIX IV 500 MG 500 MG/100 ML BAG IV SCH (09:00)
[2017-09-15] MEDS: MAXIPIME 2 GM in NS 100 ML IV 100 ML IV SCH (09:59)
[2017-09-15] MEDS ORDERED: D5W 1000 ML IV 1,000 ML IV SCH (10:00)
[2017-09-15] MEDS: ZITHROMAX INJ 500 MG VIAL 500 MG in NS 250 ML IV 250 ML IV SCH (10:32)
[2017-09-15] MEDS ORDERED: NS 100 ML IV + SPIKE MINIBAG* 100 ML IV ONE (10:37)
[2017-09-15] MEDS ORDERED: D5W 1000 ML IV 1,000 ML IV ONE (10:48)
[2017-09-15] MEDS: ATIVAN TAB 1 MG PO SCH ×3 (11:02→21:07)
[2017-09-15] MEDS: PERCOCET TAB 5/325 MG PO SCH ×4 (11:21→22:00)
[2017-09-15] MEDS: D5W 1000 ML IV 1,000 ML IV SCH (11:36)
--- NOTE | 2017-09-15 13:10 | CT ---
HISTORY: Respiratory distress and overdose. Study: CT chest without contrast Comparison: Chest x-ray dated same day and CT chest dated July 11, 2017. Technique: Multiple axial images of the chest were obtained from the thoracic inlet to the upper abdo men without the administration of IV contrast. Dose reduction techniques including Automated Exposure Control (AEC) and adjustment of mA and kV were utilized. Findings: The mediastinum does not demonstrate significant pathological lymphadenopathy. There is no paracardi al effusion observed. The thoracic aorta is normal in its contour without evidence for aneurysmal di latation. Mild calcifications of the left anterior descending coronary artery. The remaining heart is unremarkable. Diffuse patchy airspace disease, that is more prominent in a perihilar distribution. No obvious pulmo nary nodule, mass, pleural effusion, or pneumothorax. The upper abdominal structures are unremarkable . Compression fracture of the L1 vertebral body appears unchanged. Remaining osseous structures appea r normal for age. IMPRESSION: 1. Diffuse bilateral patchy airspace disease, that is more prominent in a perihilar distribution. Di fferential diagnosis includes, but is not limited to: Multifocal pneumonia, pulmonary edema, pulmonar y hemorrhage, aspiration, or drug reaction. Recommend clinical/laboratory correlation. 2. Other chronic findings as above. Reported By:
[2017-09-15] MEDS ORDERED: DILAUDID INJ ONE (13:11)
[2017-09-15] MEDS ORDERED: DILAUDID INJ IVP ONE (13:21)
[2017-09-15] MEDS: ZOSYN VIAL 4.5 GM IV SCH ×3 (13:22→21:08)
[2017-09-15] MEDS: MAGNESIUM SULFATE 1 GM/100 mL PREMIX 1 GM/100 ML BAG IV PRN ×2 (17:13→18:34)
[2017-09-15] MEDS ORDERED: NS 100 ML IV 100 ML IV ONE (20:52)
[2017-09-15] MEDS: K-LYTE EFFERVESCENT PO PRN (21:07)
[2017-09-15] MEDS ORDERED: NS 250 ML IV 250 ML IV ONE (21:15)
[2017-09-16] MEDS: D5W 1000 ML IV 1,000 ML IV SCH ×3 (01:08→22:07)
[2017-09-16] MEDS: DUONEB 0.5 MG/3 MG NEB SCH ×6 (01:25→21:39)
[2017-09-16] MEDS: ZOSYN VIAL 4.5 GM 4.5 GM in NS 100 ML IV + SPIKE MINIBAG* 100 ML IV SCH ×3 (05:09→22:07)
[2017-09-16 05:39] LABS: ABG BASE EXCESS 13.1 mmol/L (-2.0-2.0)
[2017-09-16 05:40] LABS: ABG HCO3 37.6 mmol/L (22-26)
[2017-09-16 06:04] LABS: ALANINE AMINOTRANSFERASE 84 Units/L (12-78); ALBUMIN 2.4 g/dL (3.4-5.0); ALKALINE PHOSPHATASE 129 Units/L (46-116); ASPARTATE AMINO TRANSFERASE 65 Units/L (15-37); BLOOD UREA NITROGEN 26 mg/dL (7-18); CALCIUM 8.4 mg/dL (8.5-10.1); CARBON DIOXIDE 33.3 mmol/L (21-32); CHLORIDE 107 mmol/L (98-107); COR CA(FOR HYPOALB) 9.7 mg/dL (8.5-10.1); COR NA(FOR HYPERGLY) 150 mmol/L (136-145); CREATININE 1.21 mg/dL (0.55-1.02); SODIUM 147 mmol/L (136-145); TOTAL PROTEIN 6.2 g/dL (6.4-8.2); eGFR BLACK RACES > 60 (>60); eGFR NON BLACK RACES 51 (>60)
[2017-09-16 06:10] LABS: BASOPHILS % (AUTO) 0.1 % (0.2-1.0); EOSINOPHILS # (AUTO) 0.1 x10^3/uL (0.0-0.2); EOSINOPHILS % (AUTO) 0.4 % (0.9-2.9); HEMATOCRIT 29.5 % (36.0-47.0); HEMOGLOBIN 10.2 g/dL (12.0-16.0); LYMPHOCYTES # (AUTO) 2.1 X10^3/uL (1.3-2.9); LYMPHOCYTES % (AUTO) 13.2 % (21.0-51.0); MEAN CORPUSCULAR HEMOGLOBIN 30.7 pg (27.0-34.0); MEAN CORPUSCULAR HGB CONC 34.4 g/dL (33.0-35.0); MEAN CORPUSCULAR VOLUME 89.1 fL (80.0-100.0); MEAN PLATELET VOLUME 8.4 fL (7.4-11.0); MONOCYTES # (AUTO) 1.4 x10^3/uL (0.3-0.8); MONOCYTES % (AUTO) 8.7 % (0.0-13.0); NEUTROPHILS # (AUTO) 12.6 x10^3/uL (2.2-4.8); NEUTROPHILS % (AUTO) 77.6 % (42.0-75.0); PLATELET COUNT 255 X10^3/uL (150.0-450.0); RED BLOOD COUNT 3.31 X10^6/uL (3.5-5.4); RED CELL DISTRIBUTION WIDTH 13.3 % (11.6-16.5); WHITE BLOOD COUNT 16.2 X10^3/uL (3.6-10.0)
[2017-09-16] MEDS: ATIVAN TAB 1 MG PO SCH ×3 (06:14→22:07)
[2017-09-16] MEDS: PERCOCET TAB 5/325 MG PO SCH ×5 (06:14→22:07)
[2017-09-16] MEDS: MAG-OX TAB PO PRN (09:30)
[2017-09-16] MEDS: ZITHROMAX INJ 500 MG VIAL 500 MG in NS 250 ML IV 250 ML IV SCH (09:57)
[2017-09-16] MEDS: PriLOSEC PO SCH (09:59)
[2017-09-16] MEDS: MAXIPIME 2 GM in NS 100 ML IV 100 ML IV SCH (10:09)
[2017-09-16] MEDS: K-LYTE EFFERVESCENT PO PRN (17:21)
[2017-09-16] MEDS ORDERED: NS 250 ML IV 250 ML IV PRN (22:23)
[2017-09-17] MEDS: DUONEB 0.5 MG/3 MG NEB SCH ×6 (01:22→22:36)
[2017-09-17] MEDS: D5W 1000 ML IV 1,000 ML IV SCH ×3 (02:10→22:00)
[2017-09-17] MEDS: PERCOCET TAB 5/325 MG PO SCH ×4 (04:41→22:00)
[2017-09-17] MEDS: ZOSYN VIAL 4.5 GM 4.5 GM in NS 100 ML IV + SPIKE MINIBAG* 100 ML IV SCH ×3 (05:00→22:18)
[2017-09-17] MEDS: ATIVAN TAB 1 MG PO SCH ×3 (05:18→21:48)
[2017-09-17 05:34] LABS: ABG ALLEN TEST POS; ABG BASE EXCESS 10.2 mmol/L (-2.0-2.0); ABG HCO3 34.3 mmol/L (22-26)
[2017-09-17 06:04] LABS: BASOPHILS % (AUTO) 0.3 % (0.2-1.0); EOSINOPHILS # (AUTO) 0.4 x10^3/uL (0.0-0.2); EOSINOPHILS % (AUTO) 2.6 % (0.9-2.9); HEMATOCRIT 28.2 % (36.0-47.0); HEMOGLOBIN 9.7 g/dL (12.0-16.0); LYMPHOCYTES # (AUTO) 2.6 X10^3/uL (1.3-2.9); LYMPHOCYTES % (AUTO) 17.8 % (21.0-51.0); MEAN CORPUSCULAR HEMOGLOBIN 30.8 pg (27.0-34.0); MEAN CORPUSCULAR HGB CONC 34.5 g/dL (33.0-35.0); MEAN CORPUSCULAR VOLUME 89.2 fL (80.0-100.0); MEAN PLATELET VOLUME 8.3 fL (7.4-11.0); MONOCYTES # (AUTO) 1.1 x10^3/uL (0.3-0.8); MONOCYTES % (AUTO) 7.3 % (0.0-13.0); NEUTROPHILS # (AUTO) 10.7 x10^3/uL (2.2-4.8); PLATELET COUNT 245 X10^3/uL (150.0-450.0); RED BLOOD COUNT 3.16 X10^6/uL (3.5-5.4); RED CELL DISTRIBUTION WIDTH 13.3 % (11.6-16.5); WHITE BLOOD COUNT 14.9 X10^3/uL (3.6-10.0)
[2017-09-17 06:23] LABS: ALANINE AMINOTRANSFERASE 62 Units/L (12-78); ALBUMIN 2.2 g/dL (3.4-5.0); ALKALINE PHOSPHATASE 113 Units/L (46-116); ASPARTATE AMINO TRANSFERASE 32 Units/L (15-37); BLOOD UREA NITROGEN 14 mg/dL (7-18); CALCIUM 7.9 mg/dL (8.5-10.1); CARBON DIOXIDE 31.5 mmol/L (21-32); CHLORIDE 104 mmol/L (98-107); COR CA(FOR HYPOALB) 9.3 mg/dL (8.5-10.1); COR NA(FOR HYPERGLY) 145 mmol/L (136-145); CREATININE 0.85 mg/dL (0.55-1.02); SODIUM 143 mmol/L (136-145); TOTAL PROTEIN 5.7 g/dL (6.4-8.2); eGFR BLACK RACES > 60 (>60); eGFR NON BLACK RACES > 60 (>60)
[2017-09-17] MEDS: K-LYTE EFFERVESCENT PO PRN (06:39)
[2017-09-17 06:49] LABS: PLATELET MORPHOLOGY COMMENT NORMAL (NORMAL)
--- NOTE | 2017-09-17 07:46 | RAD ---
Examination: Portable AP chest History: Tachypneic Comparison reference 09/15/2017 Findings: Continued normal heart size. Interval improvement in aeration of the lungs with decreasing confluent bilateral infiltrates or edema. The lungs are not yet clear. No complicating pneumothorax i s identified. The Impression: Interval improvement with residual bilateral pulmonary densities consistent with edema. T he Reported By:
[2017-09-17] MEDS: PriLOSEC PO SCH (08:51)
[2017-09-17] MEDS: ZITHROMAX INJ 500 MG VIAL 500 MG in NS 250 ML IV 250 ML IV SCH (08:51)
[2017-09-17] MEDS: MAG-OX TAB PO PRN (08:52)
[2017-09-17] MEDS: MAXIPIME 2 GM in NS 100 ML IV 100 ML IV SCH ×2 (09:20→21:41)
[2017-09-17] MEDS: DIFLUCAN 200 MG IV PREMIX* 200 MG/100 ML BAG IV SCH (19:06)
[2017-09-17] MEDS: ZOFRAN INJ 4 MG VIAL IVP PRN (19:21)
[2017-09-18] MEDS: DUONEB 0.5 MG/3 MG NEB SCH ×6 (03:43→22:33)
[2017-09-18] MEDS: D5W 1000 ML IV 1,000 ML IV SCH (04:42)
[2017-09-18] MEDS: PERCOCET TAB 5/325 MG PO SCH ×4 (04:43→22:48)
[2017-09-18] MEDS: ATIVAN TAB 1 MG PO SCH ×3 (05:01→22:48)
[2017-09-18] MEDS: MAXIPIME 2 GM in NS 100 ML IV 100 ML IV SCH ×2 (05:16→15:49)
[2017-09-18 06:03] LABS: ABG BASE EXCESS 8.7 mmol/L (-2.0-2.0)
[2017-09-18] MEDS: ZOSYN VIAL 4.5 GM 4.5 GM in NS 100 ML IV + SPIKE MINIBAG* 100 ML IV SCH ×2 (06:03→15:49)
[2017-09-18 06:05] LABS: ABG HCO3 31.5 mmol/L (22-26)
[2017-09-18 06:06] LABS: ABG ALLEN TEST POS
[2017-09-18 06:26] LABS: ALANINE AMINOTRANSFERASE 57 Units/L (12-78); ALBUMIN 2.5 g/dL (3.4-5.0); ALKALINE PHOSPHATASE 112 Units/L (46-116); ASPARTATE AMINO TRANSFERASE 23 Units/L (15-37); BLOOD UREA NITROGEN 9 mg/dL (7-18); CALCIUM 8.3 mg/dL (8.5-10.1); CARBON DIOXIDE 29.7 mmol/L (21-32); CHLORIDE 104 mmol/L (98-107); COR CA(FOR HYPOALB) 9.5 mg/dL (8.5-10.1); COR NA(FOR HYPERGLY) 142 mmol/L (136-145); CREATININE 0.96 mg/dL (0.55-1.02); MAGNESIUM 1.6 mg/dL (1.7-2.9); SODIUM 142 mmol/L (136-145); TOTAL PROTEIN 6.4 g/dL (6.4-8.2); eGFR BLACK RACES > 60 (>60); eGFR NON BLACK RACES > 60 (>60)
[2017-09-18 06:29] LABS: BASOPHILS % (AUTO) 0.2 % (0.2-1.0); EOSINOPHILS # (AUTO) 0.3 x10^3/uL (0.0-0.2); EOSINOPHILS % (AUTO) 2.4 % (0.9-2.9); HEMATOCRIT 29.2 % (36.0-47.0); LYMPHOCYTES # (AUTO) 2.3 X10^3/uL (1.3-2.9); LYMPHOCYTES % (AUTO) 17.1 % (21.0-51.0); MEAN CORPUSCULAR HEMOGLOBIN 30.7 pg (27.0-34.0); MEAN CORPUSCULAR HGB CONC 34.3 g/dL (33.0-35.0); MEAN CORPUSCULAR VOLUME 89.4 fL (80.0-100.0); MEAN PLATELET VOLUME 8.5 fL (7.4-11.0); MONOCYTES % (AUTO) 7.5 % (0.0-13.0); NEUTROPHILS # (AUTO) 9.8 x10^3/uL (2.2-4.8); NEUTROPHILS % (AUTO) 72.8 % (42.0-75.0); PLATELET COUNT 257 X10^3/uL (150.0-450.0); RED BLOOD COUNT 3.26 X10^6/uL (3.5-5.4); RED CELL DISTRIBUTION WIDTH 13.5 % (11.6-16.5); WHITE BLOOD COUNT 13.5 X10^3/uL (3.6-10.0)
[2017-09-18] MEDS: K-LYTE EFFERVESCENT PO PRN (06:39)
[2017-09-18] MEDS: MAG-OX TAB PO PRN (06:39)
--- NOTE | 2017-09-18 07:06 | RAD ---
HISTORY: Tachypnea Study: Single-view of the chest Comparison: September 17, 2017 Technique: Single-view of the chest Findings: The cardiac silhouette is relatively stable in appearance. Images again demonstrate slight interval i mprovement in aeration of both lungs with mild residual infiltrate and/or edema primarily involving t he lung bases. IMPRESSION: Continued interval improvement as noted above. Reported By:
[2017-09-18] MEDS: DIFLUCAN 200 MG IV PREMIX* 200 MG/100 ML BAG IV SCH (09:03)
[2017-09-18] MEDS: ZITHROMAX INJ 500 MG VIAL 500 MG in NS 250 ML IV 250 ML IV SCH (09:03)
[2017-09-18] MEDS: PriLOSEC PO SCH (10:51)
[2017-09-18 14:18] LABS: ABG ALLEN TEST POS; ABG BASE EXCESS 8.1 mmol/L (-2.0-2.0); ABG HCO3 32.8 mmol/L (22-26)
[2017-09-18] MEDS ORDERED: ZOFRAN TAB 4 MG PO PRN (18:12)
[2017-09-18] MEDS: DIFLUCAN PO SCH (18:23)
[2017-09-18] MEDS: ZITHROMAX TAB 250 MG PO SCH (18:24)
[2017-09-18] MEDS: LASIX PO SCH (18:24)
[2017-09-18] MEDS: LEVAQUIN TAB 500 MG PO SCH (18:24)
[2017-09-18] MEDS ORDERED: LASIX IVP SCH (21:00)
[2017-09-19] MEDS: DUONEB 0.5 MG/3 MG NEB SCH ×6 (00:36→20:46)
[2017-09-19 05:45] LABS: ABG BASE EXCESS 9.3 mmol/L (-2.0-2.0)
[2017-09-19 05:48] LABS: ABG HCO3 33.5 mmol/L (22-26)
[2017-09-19 05:49] LABS: ABG ALLEN TEST POS
[2017-09-19] MEDS: PERCOCET TAB 5/325 MG PO SCH ×4 (05:53→22:25)
[2017-09-19] MEDS: ATIVAN TAB 1 MG PO SCH ×3 (05:53→22:25)
[2017-09-19] MEDS: D5W 1000 ML IV 1,000 ML IV SCH (06:13)
[2017-09-19 06:27] LABS: BASOPHILS % (AUTO) 0.2 % (0.2-1.0); EOSINOPHILS # (AUTO) 0.3 x10^3/uL (0.0-0.2); EOSINOPHILS % (AUTO) 2.5 % (0.9-2.9); HEMATOCRIT 28.8 % (36.0-47.0); HEMOGLOBIN 9.9 g/dL (12.0-16.0); LYMPHOCYTES # (AUTO) 2.3 X10^3/uL (1.3-2.9); MEAN CORPUSCULAR HEMOGLOBIN 31.1 pg (27.0-34.0); MEAN CORPUSCULAR HGB CONC 34.4 g/dL (33.0-35.0); MEAN CORPUSCULAR VOLUME 90.5 fL (80.0-100.0); MEAN PLATELET VOLUME 8.7 fL (7.4-11.0); MONOCYTES # (AUTO) 0.9 x10^3/uL (0.3-0.8); MONOCYTES % (AUTO) 8.7 % (0.0-13.0); NEUTROPHILS # (AUTO) 7.3 x10^3/uL (2.2-4.8); NEUTROPHILS % (AUTO) 67.6 % (42.0-75.0); PLATELET COUNT 210 X10^3/uL (150.0-450.0); RED BLOOD COUNT 3.18 X10^6/uL (3.5-5.4); RED CELL DISTRIBUTION WIDTH 13.4 % (11.6-16.5); WHITE BLOOD COUNT 10.8 X10^3/uL (3.6-10.0)
[2017-09-19 06:43] LABS: ALANINE AMINOTRANSFERASE 44 Units/L (12-78); ALBUMIN 2.3 g/dL (3.4-5.0); ALKALINE PHOSPHATASE 101 Units/L (46-116); ASPARTATE AMINO TRANSFERASE 22 Units/L (15-37); BLOOD UREA NITROGEN 11 mg/dL (7-18); CALCIUM 8.6 mg/dL (8.5-10.1); CARBON DIOXIDE 29.3 mmol/L (21-32); CHLORIDE 104 mmol/L (98-107); SODIUM 141 mmol/L (136-145); TOTAL PROTEIN 6.1 g/dL (6.4-8.2); eGFR BLACK RACES > 60 (>60); eGFR NON BLACK RACES > 60 (>60)
--- NOTE | 2017-09-19 07:05 | RAD ---
Examination: Portable AP chest History: Respiratory distress Comparison 09/18/2017 Findings: Continued normal heart size with central vascular distention and mild perihilar interstitia l prominence consistent with atelectasis or residual edema. Impression: No change since 1 day earlier. Reported By:
[2017-09-19] MEDS ORDERED: LASIX IVP ONE (07:49)
[2017-09-19] MEDS: LASIX PO SCH ×2 (07:50→17:51)
[2017-09-19] MEDS: LEVAQUIN TAB 500 MG PO SCH (08:52)
[2017-09-19] MEDS: ZITHROMAX TAB 250 MG PO SCH (08:52)
[2017-09-19] MEDS: DIFLUCAN PO SCH (08:52)
[2017-09-19] MEDS: MAG-OX TAB PO PRN (08:52)
[2017-09-19] MEDS: PriLOSEC PO SCH (08:52)
[2017-09-20] MEDS: DUONEB 0.5 MG/3 MG NEB SCH ×5 (00:05→17:05)
[2017-09-20 05:26] LABS: BASOPHILS % (AUTO) 0.3 % (0.2-1.0); EOSINOPHILS # (AUTO) 0.2 x10^3/uL (0.0-0.2); EOSINOPHILS % (AUTO) 2.4 % (0.9-2.9); HEMATOCRIT 31.2 % (36.0-47.0); HEMOGLOBIN 10.7 g/dL (12.0-16.0); LYMPHOCYTES # (AUTO) 2.4 X10^3/uL (1.3-2.9); LYMPHOCYTES % (AUTO) 23.3 % (21.0-51.0); MEAN CORPUSCULAR HEMOGLOBIN 30.7 pg (27.0-34.0); MEAN CORPUSCULAR HGB CONC 34.3 g/dL (33.0-35.0); MEAN CORPUSCULAR VOLUME 89.3 fL (80.0-100.0); MEAN PLATELET VOLUME 8.5 fL (7.4-11.0); MONOCYTES # (AUTO) 0.9 x10^3/uL (0.3-0.8); MONOCYTES % (AUTO) 8.7 % (0.0-13.0); NEUTROPHILS # (AUTO) 6.7 x10^3/uL (2.2-4.8); NEUTROPHILS % (AUTO) 65.3 % (42.0-75.0); PLATELET COUNT 235 X10^3/uL (150.0-450.0); RED CELL DISTRIBUTION WIDTH 13.6 % (11.6-16.5); WHITE BLOOD COUNT 10.3 X10^3/uL (3.6-10.0)
[2017-09-20 05:37] LABS: ALANINE AMINOTRANSFERASE 41 Units/L (12-78); ALBUMIN 2.6 g/dL (3.4-5.0); ALKALINE PHOSPHATASE 109 Units/L (46-116); ASPARTATE AMINO TRANSFERASE 24 Units/L (15-37); BLOOD UREA NITROGEN 11 mg/dL (7-18); CALCIUM 8.8 mg/dL (8.5-10.1); CARBON DIOXIDE 31.7 mmol/L (21-32); CHLORIDE 101 mmol/L (98-107); COR CA(FOR HYPOALB) 9.9 mg/dL (8.5-10.1); CREATININE 0.95 mg/dL (0.55-1.02); MAGNESIUM 1.7 mg/dL (1.7-2.9); SODIUM 140 mmol/L (136-145); TOTAL PROTEIN 6.8 g/dL (6.4-8.2); eGFR BLACK RACES > 60 (>60); eGFR NON BLACK RACES > 60 (>60)
[2017-09-20] MEDS: ATIVAN TAB 1 MG PO SCH ×2 (05:47→16:09)
[2017-09-20] MEDS: PERCOCET TAB 5/325 MG PO SCH ×3 (05:47→18:16)
--- NOTE | 2017-09-20 07:35 | RAD ---
HISTORY: Respiratory distress Study: Chest PA and lateral Comparison: 09/19/2017 Findings: The heart is within normal limits in size. The josette are normal. The lungs are well inflated and free of infiltrates. No pleural effusions are identified. The bony thorax is unremarkable. IMPRESSION: No significant abnormality identified Reported By:
[2017-09-20] MEDS: PriLOSEC PO SCH (09:46)
[2017-09-20] MEDS: ZITHROMAX TAB 250 MG PO SCH (09:46)
[2017-09-20] MEDS: LEVAQUIN TAB 500 MG PO SCH (09:47)
[2017-09-20] MEDS: DIFLUCAN PO SCH (09:47)
[2017-09-20] MEDS: LASIX PO SCH ×2 (09:47→18:16)
[2017-09-20 17:15] VITALS: BP 116/67
== END 2017-09-20 19:30 | DRG 947 ==
LOC: ER 17:39 → ICU 22:28
PROVIDERS: ADMIT Internal Medicine; ATTEND Internal Medicine
PROC: 0D9670Z Drainage of Stomach with Drainage Device, Via Natural or Artificial Opening (ICD-10-PCS; principal; 2017-09-12)
DX: R41.82 Altered mental status, unspecified (principal); J18.8 Other pneumonia, unspecified organism; F11.129 Opioid abuse with intoxication, unspecified; I95.89 Other hypotension; E87.5 Hyperkalemia; E78.2 Mixed hyperlipidemia; K21.9 Gastro-esophageal reflux disease without esophagitis; R60.0 Localized edema; N17.8 Other acute kidney failure; E86.0 Dehydration; M62.82 Rhabdomyolysis; R06.03 Acute respiratory distress; Z78.1 Physical restraint status; B96.29 Other Escherichia coli [E. coli] as the cause of diseases classified elsewhere; F15.90 Other stimulant use, unspecified, uncomplicated; F19.90 Other psychoactive substance use, unspecified, uncomplicated
CPT/HCPCS: 36415; 36600; 51701; 51702; 70450; 71010; 71045; 71046; 71250; 74000; 80048; 80053; 80307; 80320; 81001; 82550; 82553; 82803; 83605; 83735; 84132; 84484; 85025; 85610; 85730; 86140; 87040; 87070; 87086; 87088; 87186; 87205; 93005; 93010; 93041; 94640; 94660; 95819; 96365; 96367; 96374; 96375; 99231; 99284; 99285; A4216; A4222; A4618; A7030; Q0144; S0181; G0434; G6038; G6039; G6040; J0456; J0692; J0696; J1450; J1630; J1815; J1940; J1956; J2060; J2310; J2405; J2543; J3260; J3490; J7620

== ENCOUNTER → 2017-11-15 | Outpatient (CLI) | payer BC ==
--- NOTE | 2017-11-16 07:31 | MRI ---
HISTORY: Syringomyelia with anxiety disorder Study: MRI brain with and without contrast Comparison: None available Technique: Multiplanar multi-sequence MRI of the brain was obtained. Sagittal T1, axial T1, axial T2 , axial flair images, coronal T1, sagittal T1 post contrast, coronal T1 postcontrast, axial T1 postco ntrast images were obtained. Findings: The midline structures appear intact. The posterior fossa is unremarkable. The sulcal markings of t he brain are normal in their appearance. Normal pemberton-white differentiation is maintained. No eviden ce for intraparenchymal hemorrhage or mass can be identified. No extra-axial fluid collections or dan barachnoid hematoma can be seen. Evaluation of the diffusion weighted images demonstrates no evidenc e for acute ischemic change. The cerebral pontine angle is normal in its contour without evidence fo r mass. The ventricular system appears symmetric and nondilated. Postcontrast enhancement demonstrates no evidence for an enhancing lesion such as mass or vascular ma lformation. IMPRESSION: 1. Unremarkable MRI of the brain with and without contrast. Reported By:
--- NOTE | 2017-11-16 07:44 | MRI ---
MRI cervical spine Indication: Neck and shoulder pain with history of syringomyelia Technique: Multiplanar, multi sequence imaging of the cervical spine without IV contrast administrati on. Findings: The cervical spine demonstrates loss of normal lordosis however there is no spondylolisthes is. No localizing bone marrow signal abnormality identified within the cervical spine. Mild diffuse d isc desiccation is noted. There is no prevertebral or paraspinal soft tissue swelling or fluid collec tion. The visualized posterior fossa demonstrates no mass or mass effect. The craniocervical junction and foramen magnum are normal. There is no abnormal signal evidence of cord atrophy or expansion wit hin the cervical cord. There is tiny amount of fluid within the left mastoid air cell tip. At C2-3 uncovertebral hypertrophy and facet arthropathy causes no significant spinal canal stenosis w ith mild left-sided bony neural foraminal narrowing. At C3-4 disc osteophyte complex, uncovertebral hypertrophy and mild left-sided facet arthropathy caus es mild spinal canal and bilateral bony neural foraminal stenosis. At C4-5 disc osteophyte complex and facet arthropathy causes mild spinal canal stenosis without signi ficant bony neural foraminal narrowing. At C5-6 disc osteophyte complex and mild uncovertebral hypertrophy causes moderate spinal canal steno sis with very mild mass effect on the cervical cord. There is minimal bilateral bony neural foraminal stenosis at this level. At C6-7 disc osteophyte complex and uncovertebral hypertrophy causes moderate spinal canal stenosis a nd very mild mass effect on the cervical cord. There is no significant bony neural foraminal stenosis . At C7-T1 unremarkable. Postcontrast imaging demonstrates no abnormal intrathecal or extra-axial enhancement. Impression: Multilevel discogenic degenerative change and facet arthropathy causing varying degrees o f spinal canal and bony neural foraminal stenosis as described above. No abnormal enhancement within the cord, thecal sac lower extra-axial spaces. Reported By:
== END ==
LOC: RAD 14:45
PROVIDERS: ATTEND Psychiatry & Neurology Neurology
DX: F41.8 Other specified anxiety disorders (principal); G95.0 Syringomyelia and syringobulbia; M47.892 Other spondylosis, cervical region
CPT/HCPCS: 70552; 72142

== ENCOUNTER → 2017-11-21 | Outpatient (CLI) | payer BC ==
--- NOTE | 2017-11-21 16:34 | MRI ---
MRI OF THE THORACIC SPINE WITHOUT IV CONTRAST CLINICAL INDICATION: Syringomyelia TECHNIQUE: Pre-contrast sagittal T1-, T2-, and T2-w fat-saturated images, and axial T1- and T2-w imag es of the thoracic spine. COMPARISON: 08/17/2017 FINDINGS: Redemonstration of long segment syringomyelia from approximately the T4-T8 levels measuring 7.5 cm in length which is stable from prior. The thoracic spine demonstrates normal alignment. There is height loss of L1 is chronic in appearance. There is a normal marrow signal pattern. Multilevel degenerativ e disc disease which is mild without significant stenosis. The included paraspinal soft tissues and r etroperitoneal structures are grossly normal. IMPRESSION: 1. Stable syringomyelia as above. Reported By:
== END | disposition home or self-care (01) | DRG 57 ==
LOC: RAD 14:55
PROVIDERS: ATTEND Psychiatry & Neurology Neurology
DX: G95.0 Syringomyelia and syringobulbia (principal); M51.24 Other intervertebral disc displacement, thoracic region
CPT/HCPCS: 72157

== ENCOUNTER → 2018-01-08 | Outpatient (CLI) | payer BC ==
--- NOTE | 2018-01-09 11:35 | MG ---
HISTORY: SCREENING Comparison: December 17, 2013 FINDINGS: Bilateral CC and MLO projections of the right and left breast were obtained. Scattered fibroglandula r tissue is seen to be present without significant interval change. No suspicious architectural dist ortion, mass or clustered microcalcifications can be observed to suggest malignancy. No skin thicken ing or nipple retraction is appreciated. No pathological lymphadenopathy can be identified. Benign- appearing calcifications are noted on the left. There is stable focal asymmetry in the upper outer an terior and mid right breast. IMPRESSION: NO RADIOGRAPHIC EVIDENCE OF MALIGNANCY. ACR CATEGORY 2 - benign findings. FOLLOW-UP EXAM 1 YEAR. Diagnostic CAD was utilized and reviewed. * 0 (ZERO) - ASSESSMENT INCOMPLETE; ADDITIONAL IMAGING IS NEEDED. * 1/ (ONE) - NEGATIVE. * 2/II (TWO) - BENIGN FINDINGS. * 3/III (THREE) - PROBABLY BENIGN FINDING; SHORT INTERVAL FOLLOW-UP SUGGESTED. * 4/IV (FOUR) - SUSPICIOUS ABNORMALITY; BIOPSY SHOULD BE CONSIDERED. * 5/V - HIGHLY SUSPICIOUS OF MALIGNANCY; BIOPSY SHOULD BE PERFORMED. A NEGATIVE X-RAY REPORT SHOULD NOT DELAY BIOPSY IF A DOMINANT OR CLINICALLY SUSPICIOUS MASS IS PRESENT; 4 TO 8 PERCENT OF CANCERS ARE NOT IDENTIFIED BY X-RAY. A NEGA TIVE REPORT MAY REINFORCE THE CLINICAL IMPRESSION. ADENOSIS AND DENSE BREASTS MAY OBSCURE AN UNDERLY ING NEOPLASM. Reported By:
== END ==
LOC: RAD 15:32
PROVIDERS: ATTEND Psychiatry & Neurology Neurology
DX: Z00.00 Encounter for general adult medical examination without abnormal findings (principal); Z12.31 Encounter for screening mammogram for malignant neoplasm of breast
CPT/HCPCS: 77067